=== PATIENT | female | born 1995 ===

== ENCOUNTER 2016-11-19 13:18 | Inpatient (IN) ==
[2016-11-19] MEDS ORDERED: MEPERIDINE 50 MG/1 ML VIAL IV PRN (13:49)
[2016-11-19] MEDS ORDERED: ONDANSETRON 4 MG/2 ML VIAL IV PRN ×2 (13:49→16:14)
[2016-11-19] MEDS ORDERED: BUTORPHANOL 2 MG/ML VIAL IV PRN (13:49)
[2016-11-19] MEDS ORDERED: LACTATED RINGERS 1,000 ML IV SCH (14:00)
[2016-11-19] MEDS ORDERED: OXYTOCIN/LR 20 UNIT/1,000 ML BAG IV SCH (14:00)
[2016-11-19 14:01] LABS: Basophils % 0.2 % (0.0-0.8); Eosinophils # 0.1 10*3/uL (0.0-0.87); Eosinophils % 0.7 % (0.00-10.9); Hematocrit 36.8 VOL% (35.7-47.0); Hemoglobin 12.5 GM/DL (12.0-16.0); Immature Granulocytes % 0.6 %; Immature Granulocytes Absolute 0.06 #; Lymphocytes # 1.7 10*3/uL (1.4-4.0); Lymphocytes % 17.5 % (21.3-54.2); Mean Corpuscular Hemoglobin 30 PG (27-34); Mean Platelet Volume 10.4 FL (9.6-12.0); Monocytes # 0.7 10*3/uL (0.11-0.8); Monocytes % 6.8 % (1.7-12.7); Neutrophils # 7.2 10*3/uL (1.4-7.4); Neutrophils % 74.2 % (38.7-73.9); Platelet Count 270 T/CUMM (130-400); Red Blood Count 4.18 MC/CUMM (3.8-5.5); White Blood Count 9.7 T/CUMM (4-12)
[2016-11-19] MEDS ORDERED: CLINDAMYCIN INJ 900 MG in PREMIX 1 EACH IV SCH (14:30)
[2016-11-19 14:34] LABS: Alanine Aminotransferase 11 U/L (13-56); Albumin 2.7 G/DL (3.4-5.0); Alkaline Phosphatase 162 U/L (45-117); Aspartate Amino Transferase 13 U/L (0-37); Bilirubin,Total < 0.39 MG/DL (0.2-1.0); Blood Urea Nitrogen 6 MG/DL (7-18); Glucose 105 MG/DL (74-106); Osmolality,Calculated 276.4 MOS/KG (273-304); Potassium 3.7 MMOL/L (3.5-5.1); Sodium 140 MMOL/L (136-145); Total Protein 6.4 G/DL (6.4-8.3)
--- NOTE | 2016-11-19 15:03 | OB/GYN History & Physical ---
History of Present Illness Chief complaint: Active labor, 5 cm, 80%, -1 station History of present illness: Ms. Rodriguez is a 21 year old female 4 para 2 EDC is 12/06/2016 and 37 weeks and 4 days, patient was examined at [facility] was found to be 4-5 cm dilated. 80% -2 station. Patient denies any leaking of fluid, vaginal bleeding, but does admit to irregular uterine contractions been persistent for the last 2-3 days. care has been to the [facility] without any major problems. Home Medications Medication Instructions Recorded Confirmed Type Vit No.124/Iron/Folic 1 each PO DAILY 11/19/16 11/19/16 History [ Vitamin Tablet] Allergies Allergy/AdvReac Type Severity Reaction Status Date / Time penicillin G Allergy Intermediate RASH Verified 07/13/15 10:25 Latex, Natural Rubber Allergy Verified 11/19/16 13:48 Medical,Surgical,& Family Hx - Surgical History Reproductive Surgeries: Patient denies;: Section - Family History Family History: Reports;: Family Diabetes (MOM) Denies;: Family Anesthesia Reaction, Family Cancer, Family Heart Disease, Family Hypertension, Family Psychiatric Problems, Family Stroke - Social History Smoking Status: Never smoker Frequency of Alcohol Use: None Type of Drug Use: None Exam CAD DRAFTSMAN - Constitutional General appearance: mild distress - Antepartum / Post Antepartum Exam Cervix - Dilatation: 4-5 cm dilated, 80%, -2 station - Head Head exam: Present: normal inspection - Eye Eye exam: Present: EOMI Pupils: Present: ELÍAS - ENT ENT exam: Present: normal exam - Neck Neck exam: Present: normal inspection - Respiratory Respiratory exam: Present: clear to auscultation bilaterally - Breast Breasts: as per HPI Menstruation: as per HPI - Cardiovascular Cardiovascular exam: Present: regular rate and rhythm - GI/Abdominal GI/Abdominal exam: Present: normal bowel sounds - Extremities Exam Extremities exam: Present: normal inspection - Back Exam Back exam: Present: normal inspection - Neurological Exam Neurological exam: Present: alert, oriented X3 - Psychiatric Psychiatric exam: Present: normal affect - Skin Skin exam: Present: normal color Assessment and Plan (1) Active labor Status: Acute Assessment and plan: Anticipate , have offered a epidural anesthetic patient however refuses. Fetus is very active, pelvic exam on admission to [facility] approximately 5 cm 80% and -2 station. Current Visit: Yes Results - Labs CBC & BMP: 11/19/16 13:57 11/19/16 13:57
[2016-11-19] MEDS ORDERED: LIDOCAINE 1% 50 ML VIAL ONE (15:32)
[2016-11-19] MEDS ORDERED: miSOPROStol 200 MCG TABLET ONE (15:32)
--- NOTE | 2016-11-19 16:12 | Event Note ---
Delivery note Stage I of labor Artificial rupture membranes clear fluid at 5 cm IUPC, scalp electrode placed inside IV Cleocin IV Pitocin No analgesic Stage II Vaginal delivery Live female 4:03 PM Apgars 9 at 1 minute 9 at 5 minutes Cord blood and cord gas Stage III Spontaneous liver the placenta Blood loss less than 300 cc 3 cord vessels noted Placenta delivered without any complication Mother stable A left labial laceration that did not need to be repaired.
[2016-11-19] MEDS ORDERED: IBUPROFEN 800 MG TABLET PO PRN (16:14)
[2016-11-19] MEDS ORDERED: WITCH HAZEL PADS 100/JAR TOP PRN (16:14)
[2016-11-19] MEDS ORDERED: BENZOCAINE 20%/MENTHOL 0.5% SPRAY 56 GM CAN TOP PRN (16:14)
[2016-11-19] MEDS ORDERED: MEASLES/MUMPS/RUBELLA VACCINE 0.5 ML VIAL SUBCUT ONE (16:14)
[2016-11-19] MEDS ORDERED: ACETAMINOPHEN 325 MG TABLET PO PRN (16:14)
[2016-11-19] MEDS ORDERED: RHO(D) IMMUNE GLOBULIN 300 MCG SYRINGE IM ONE (16:14)
[2016-11-19] MEDS ORDERED: BISACODYL 10 MG SUPP RECTAL PRN (16:14)
[2016-11-19] MEDS ORDERED: oxyCODONE/ACETAMINOPHEN 5-325 MG TABLET PO PRN ×2 (16:14)
[2016-11-19] MEDS ORDERED: OXYTOCIN/LR 20 UNIT/1,000 ML BAG IV ONE (16:14)
[2016-11-19] MEDS ORDERED: HYDROCORTISONE 2.5% RECTAL CREAM 30 GM TUBE TOP PRN (16:14)
[2016-11-19] MEDS ORDERED: DIPH/TET/ACEL PERT BOOSTER VACCINE 0.5 ML VIAL IM ONE (16:14)
[2016-11-19] MEDS ORDERED: LANOLIN 50% CREAM 0.3 OZ TUBE TOP PRN (16:14)
[2016-11-19 16:41] LABS: Cord Venous Blood HCO3 23.4 MMOL/L; Cord Venous Blood PCO2 38.6 MMHG; Cord Venous Blood PO2 25.6 MMHG
[2016-11-19] MEDS: DOCUSATE SODIUM 100 MG CAPSULE PO SCH (21:49)
[2016-11-20 05:23] LABS: Basophils % 0.2 % (0.0-0.8); Eosinophils # 0.1 10*3/uL (0.0-0.87); Eosinophils % 0.7 % (0.00-10.9); Hematocrit 35.8 VOL% (35.7-47.0); Immature Granulocytes % 0.6 %; Immature Granulocytes Absolute 0.07 #; Lymphocytes # 3.1 10*3/uL (1.4-4.0); Lymphocytes % 25.4 % (21.3-54.2); Mean Corpuscular HGB Conc 33.5 GM/DL (32-36); Mean Corpuscular Hemoglobin 30 PG (27-34); Mean Corpuscular Volume 89.1 FL (87-102); Mean Platelet Volume 10.7 FL (9.6-12.0); Monocytes # 0.9 10*3/uL (0.11-0.8); Monocytes % 7.5 % (1.7-12.7); Neutrophils # 8.1 10*3/uL (1.4-7.4); Neutrophils % 65.6 % (38.7-73.9); Platelet Count 251 T/CUMM (130-400); Red Blood Count 4.02 MC/CUMM (3.8-5.5); Red Cell Distribution Width 12.7 % (9.3-17.3); White Blood Count 12.3 T/CUMM (4-12)
[2016-11-20] MEDS: DOCUSATE SODIUM 100 MG CAPSULE PO SCH ×2 (09:00→21:42)
[2016-11-21 08:30] VITALS: BP 117/75
[2016-11-21] MEDS: DOCUSATE SODIUM 100 MG CAPSULE PO SCH (08:32)
--- NOTE | 2016-11-21 10:14 | Discharge Summary ---
Hospital Course - Hospital Course Hospital Course: Multiparous patient, admitted in active labor approximately 5-6 cm dilated. Patient had artificial rupture membranes IUPC scalp electrode was allowed to progress in labor. She delivered a viable without any major complaints. She had a 2 day postoperative visit in the hospital without any complications. She will be discharged and follow-up our office approximately 6 weeks. Diagnosis - Discharge Diagnosis (1) Active labor Status: Acute Specialty Discharge - Follow Up or Referrals Follow up with: Tyler Monaco MD [Physician] - Discharge Plan - Discharge Data Condition at Discharge: Stable Discharge Diet: advance to your usual diet Activity: resume usual activities as tolerated Hygiene: no restrictions Weight Bearing at Discharge: full weight bearing Driving: no restrictions Contact your physician if you experience:: fever over 101, Bleeding - Discharge Medications New oxyCODONE/ACETAMINOPHEN 5-325 [Percocet 5-325] 1 tablet PO Q6H PRN #20 tablet PRN Reason: Pain Severe (8-10) Ibuprofen Tab [Motrin Tab] 800 mg PO Q6H PRN #30 tablet PRN Reason: Pain Moderate (4-7) No Action Vit No.124/Iron/Folic [ Vitamin Tablet] 1 each PO DAILY - Follow Up or Referral Follow Up: Tyler Monaco MD [Physician] - - Forms/Instructions Instructions: Depression (GEN), Perineal Care (DC), Bleeding (DC), Sitz Bath (DC) Exam - Constitutional Vitals: Period Temp Pulse Resp BP Sys/Montano Pulse Ox Last 24 Hr 97.0 F-98.8 F 75-86 18-76 106-117/58-75 98-99 DS: Provider Date of admission: 11/19/16 13:19 Primary care physician: Toya Osorio MD Attending physician on admission: Tyler Monaco MD Consults: 11/19/16 16:14 Consult to Sample Maker [CONS] Routine Consult Sample Maker: Breast Feeding Discharging clinician: Tyler Monaco MD
== END 2016-11-21 15:00 | disposition home or self-care (01) | DRG 775 ==
LOC: N.LDOUT 13:18 → N.LD 13:19 → N.OB 17:44
PROVIDERS: ADMIT Obstetrics & Gynecology; ATTEND Obstetrics & Gynecology

== ENCOUNTER 2018-03-15 18:46 | Inpatient (IN) ==
[2018-03-15] MEDS ORDERED: SODIUM CHLORIDE 0.9% 1,000 ML IV STA (19:23)
[2018-03-15] MEDS ORDERED: ONDANSETRON 4 MG/2 ML VIAL IV STA (19:23)
[2018-03-15 19:56] LABS: PT Patient Result 10.4 SECS
[2018-03-15 20:05] LABS: Basophils % 0.4 % (0.0-0.8); Eosinophils # 0.1 10*3/uL (0.0-0.87); Eosinophils % 1.4 % (0.00-10.9); Immature Granulocytes % 0.4 %; Immature Granulocytes Absolute 0.03 #; Lymphocytes # 2.9 10*3/uL (1.4-4.0); Lymphocytes % 34.8 % (21.3-54.2); Mean Corpuscular HGB Conc 32.6 GM/DL (32-36); Mean Corpuscular Hemoglobin 31 PG (27-34); Mean Corpuscular Volume 95.5 FL (87-102); Monocytes # 0.5 10*3/uL (0.11-0.8); Monocytes % 5.9 % (1.7-12.7); Neutrophils # 4.7 10*3/uL (1.4-7.4); Neutrophils % 57.1 % (38.7-73.9); Platelet Count 211 T/CUMM (130-400); Red Blood Count 1.99 MC/CUMM (3.8-5.5); Red Cell Distribution Width 12.7 % (9.3-17.3); White Blood Count 8.3 T/CUMM (4-12)
[2018-03-15 20:12] LABS: Alanine Aminotransferase 11 U/L (13-56); Albumin 2.7 G/DL (3.4-5.0); Alkaline Phosphatase 53 U/L (45-117); Aspartate Amino Transferase 10 U/L (0-37); Bilirubin,Total < 0.39 MG/DL (0.2-1.0); Blood Urea Nitrogen 7 MG/DL (7-18); Glucose 80 MG/DL (74-106); Osmolality,Calculated 279.1 MOS/KG (273-304); Potassium 3.6 MMOL/L (3.5-5.1); Sodium 142 MMOL/L (136-145); Total Protein 5.7 G/DL (6.4-8.3)
[2018-03-15 20:25] LABS: Hemoglobin 6.2 GM/DL (12.0-16.0)
[2018-03-15 21:03] LABS: Apearance,Urine Slightly Hazy (Clear); Bilirubin,Urine Negative (Negative); Blood, Urine Large mg/dL (Negative); Glucose,Urine (UA) Negative (Negative); Ketones,Urine 20 mg/dL (Negative); Mucus,Urine Many /LPF (Occasional); Nitrite,Urine Negative (Negative); Protein,Urine 30 MG/DL; RBC,Urine 25 /HPF (0-4); Squamous Epithelial Cell,Urine Occasional /HPF (0-10); Urine Color Yellow (Yellow); Urine Specific Gravity 1.025 (1.001-1.035); WBC,Urine 19 /HPF (0-6)
[2018-03-15] MEDS ORDERED: LEVOFLOXACIN INJ 750 MG in PREMIX 1 EACH IV STA (23:47)
[2018-03-16] MEDS ORDERED: MAGNESIUM HYDROXIDE SUSP 30 ML UDCUP PO PRN (00:52)
[2018-03-16] MEDS ORDERED: IBUPROFEN 800 MG TABLET PO PRN (00:52)
[2018-03-16] MEDS ORDERED: SODIUM CHLORIDE 0.9% 1,000 ML IV PRN ×3 (00:52→09:59)
[2018-03-16] MEDS ORDERED: ACETAMINOPHEN 325 MG TABLET PO PRN (00:52)
[2018-03-16] MEDS ORDERED: HYDROmorphone 2 MG TABLET PO PRN (00:52)
[2018-03-16] MEDS ORDERED: ONDANSETRON 4 MG/2 ML VIAL IV PRN (00:52)
[2018-03-16] MEDS ORDERED: LACTATED RINGERS 1,000 ML IV SCH (00:52)
[2018-03-16] MEDS ORDERED: BISACODYL 10 MG SUPP RECTAL PRN (00:52)
[2018-03-16 01:31] LABS: Basophils % 0.3 % (0.0-0.8); Eosinophils # 0.1 10*3/uL (0.0-0.87); Immature Granulocytes % 0.6 %; Immature Granulocytes Absolute 0.04 #; Lymphocytes # 2.9 10*3/uL (1.4-4.0); Lymphocytes % 42.7 % (21.3-54.2); Mean Corpuscular HGB Conc 32.2 GM/DL (32-36); Mean Corpuscular Hemoglobin 31 PG (27-34); Mean Corpuscular Volume 95.5 FL (87-102); Monocytes # 0.4 10*3/uL (0.11-0.8); Monocytes % 5.1 % (1.7-12.7); Neutrophils # 3.4 10*3/uL (1.4-7.4); Neutrophils % 49.3 % (38.7-73.9); Platelet Count 162 T/CUMM (130-400); Red Blood Count 1.79 MC/CUMM (3.8-5.5); Red Cell Distribution Width 12.6 % (9.3-17.3); White Blood Count 6.8 T/CUMM (4-12)
[2018-03-16 01:34] LABS: Hemoglobin 5.5 GM/DL (12.0-16.0)
[2018-03-16 01:35] LABS: Hematocrit 17.1 VOL% (35.7-47.0)
[2018-03-16 01:43] LABS: PT Patient Result 10.6 SECS
[2018-03-16 01:51] LABS: Alanine Aminotransferase 11 U/L (13-56); Albumin 2.3 G/DL (3.4-5.0); Alkaline Phosphatase 48 U/L (45-117); Aspartate Amino Transferase 7 U/L (0-37); Bilirubin,Total < 0.39 MG/DL (0.2-1.0); Blood Urea Nitrogen 5 MG/DL (7-18); Glucose 106 MG/DL (74-106); Potassium 3.3 MMOL/L (3.5-5.1); Sodium 143 MMOL/L (136-145); Total Protein 5.1 G/DL (6.4-8.3)
[2018-03-16] MEDS ORDERED: INFLUENZA VIRUS VACCINE 0.5 ML SYRINGE IM ONE (01:51)
[2018-03-16] MEDS: DOCUSATE SODIUM 100 MG CAPSULE PO SCH ×2 (08:51→23:09)
[2018-03-16] MEDS: FERROUS SULFATE 325 MG TABLET PO SCH ×2 (08:52→23:09)
[2018-03-16 08:56] LABS: Basophils % 0.3 % (0.0-0.8); Eosinophils # 0.1 10*3/uL (0.0-0.87); Eosinophils % 1.5 % (0.00-10.9); Immature Granulocytes % 0.7 %; Immature Granulocytes Absolute 0.04 #; Lymphocytes # 2.1 10*3/uL (1.4-4.0); Lymphocytes % 36.5 % (21.3-54.2); Mean Corpuscular HGB Conc 33.6 GM/DL (32-36); Mean Corpuscular Hemoglobin 31 PG (27-34); Mean Corpuscular Volume 92.3 FL (87-102); Mean Platelet Volume 10.6 FL (9.6-12.0); Monocytes # 0.4 10*3/uL (0.11-0.8); Monocytes % 6.1 % (1.7-12.7); Neutrophils # 3.2 10*3/uL (1.4-7.4); Neutrophils % 54.9 % (38.7-73.9); Platelet Count 172 T/CUMM (130-400); Red Cell Distribution Width 13.2 % (9.3-17.3); White Blood Count 5.9 T/CUMM (4-12)
[2018-03-16 09:07] LABS: Hemoglobin 8.4 GM/DL (12.0-16.0); Red Blood Count 2.71 MC/CUMM (3.8-5.5)
[2018-03-16 17:34] LABS: Hematocrit 30.5 VOL% (35.7-47.0)
[2018-03-16] MEDS ORDERED: LEVOFLOXACIN INJ 750 MG in PREMIX 1 EACH IV SCH (23:30)
[2018-03-17] MEDS: DOCUSATE SODIUM 100 MG CAPSULE PO SCH (08:35)
[2018-03-17] MEDS: FERROUS SULFATE 325 MG TABLET PO SCH (08:35)
[2018-03-17 12:02] VITALS: BP 101/59
== END 2018-03-17 16:40 | disposition home or self-care (01) | DRG 812 ==
LOC: EDUNIT# → EDBD → N.ED 18:46 → N.EDINP 23:47 → N.OB 03-16 00:48
PROVIDERS: ADMIT Obstetrics & Gynecology; ATTEND Obstetrics & Gynecology

== ENCOUNTER 2019-04-24 04:49 | Inpatient (IN) ==
[2019-04-24] MEDS ORDERED: ONDANSETRON 4 MG/2 ML VIAL IV PRN (05:08)
[2019-04-24] MEDS ORDERED: MEPERIDINE 50 MG/1 ML VIAL IV PRN (05:08)
[2019-04-24] MEDS ORDERED: CLINDAMYCIN INJ 900 MG in PREMIX 1 EACH IV SCH (05:30)
[2019-04-24] MEDS ORDERED: LACTATED RINGERS 1,000 ML IV SCH (05:30)
[2019-04-24 05:34] LABS: Basophils % 0.1 % (0.0-0.8); Eosinophils # 0.1 10*3/uL (0.0-0.87); Hematocrit 34.7 VOL% (35.7-47.0); Hemoglobin 11.2 GM/DL (12.0-16.0); Immature Granulocytes % 0.5 %; Immature Granulocytes Absolute 0.07 #; Lymphocytes # 1.8 10*3/uL (1.4-4.0); Lymphocytes % 13.6 % (21.3-54.2); Mean Corpuscular HGB Conc 32.3 GM/DL (32-36); Mean Corpuscular Volume 91.3 FL (87-102); Mean Platelet Volume 10.6 FL (9.6-12.0); Monocytes % 8.2 % (1.7-12.7); Neutrophils % 76.6 % (38.7-73.9); Platelet Count 254 T/CUMM (130-400); White Blood Count 13.4 T/CUMM (4-12)
[2019-04-24 05:47] LABS: Apearance,Urine CLEAR (Clear); Bacteria,Urine Occasional /HPF (Few); Bilirubin,Urine Negative (Negative); Blood, Urine Small mg/dL (Negative); Glucose,Urine (UA) 50 mg/dL (Negative); Ketones,Urine Negative (Negative); Mucus,Urine Occasional /LPF (Occasional); Nitrite,Urine Negative (Negative); Protein,Urine Negative; RBC,Urine 2 /HPF (0-4); Squamous Epithelial Cell,Urine Occasional /HPF (0-10); Urine Color Yellow (Yellow); Urine Urobilinogen < 2.0 EU/DL (0.2-1.0); WBC,Urine 2 /HPF (0-6)
[2019-04-24 06:07] LABS: Alanine Aminotransferase 12 U/L (13-56); Albumin 2.4 G/DL (3.4-5.0); Alkaline Phosphatase 138 U/L (45-117); Aspartate Amino Transferase 11 U/L (0-37); Bilirubin,Total < 0.39 MG/DL (0.2-1.0); Blood Urea Nitrogen 4 MG/DL (7-18); Calcium 7.8 MG/DL (8.5-10.1); Estimated Glom Filtration Rate 146 ML/MIN; Glucose 102 MG/DL (74-106); Osmolality,Calculated 273.5 MOS/KG (273-304); Total Protein 6.4 G/DL (6.4-8.3)
[2019-04-24] MEDS ORDERED: TRANEXAMIC ACID 1,000 MG/10 ML VIAL ONE (07:47)
[2019-04-24] MEDS ORDERED: miSOPROStoL 200 MCG TABLET ONE (07:47)
[2019-04-24] MEDS ORDERED: LIDOCAINE 1% 50 ML VIAL ONE (07:48)
[2019-04-24] MEDS ORDERED: CARBOPROST TROMETHAMINE 250 MCG/ML AMP IM ONE (07:48)
[2019-04-24] MEDS ORDERED: METHYLERGONOVINE 0.2 MG/1 ML AMP ONE (07:48)
[2019-04-24] MEDS ORDERED: OXYTOCIN/LR 20 UNIT/1,000 ML BAG IV ONE ×2 (07:48→10:16)
[2019-04-24] MEDS: OXYTOCIN/LR 30 UNIT/1,000 ML BAG IV ONE ×2 (08:20→09:49)
[2019-04-24] MEDS ORDERED: OXYTOCIN/LR 20 UNIT/1,000 ML BAG IV SCH (10:00)
[2019-04-24] MEDS ORDERED: IBUPROFEN 800 MG TABLET PO PRN (11:46)
[2019-04-24] MEDS ORDERED: BISACODYL 10 MG SUPP RECTAL PRN (11:46)
[2019-04-24] MEDS ORDERED: BENZOCAINE 20%/MENTHOL 0.5% SPRAY 56 GM CAN TOP PRN (11:46)
[2019-04-24] MEDS ORDERED: oxyCODONE/ACETAMINOPHEN 5-325 MG TABLET PO PRN (11:46)
[2019-04-24] MEDS ORDERED: HYDROCORTISONE 2.5% RECTAL CREAM 30 GM TUBE TOP PRN (11:46)
[2019-04-24] MEDS ORDERED: ACETAMINOPHEN 325 MG TABLET PO PRN (11:46)
[2019-04-24] MEDS ORDERED: WITCH HAZEL PADS 100/JAR TOP PRN (11:46)
[2019-04-24] MEDS: DOCUSATE SODIUM 100 MG CAPSULE PO SCH (21:07)
[2019-04-24] MEDS: oxyCODONE/ACETAMINOPHEN 5-325 MG TABLET PO PRN (21:13)
[2019-04-25 06:15] LABS: Basophils % 0.2 % (0.0-0.8); Eosinophils # 0.2 10*3/uL (0.0-0.87); Eosinophils % 1.5 % (0.00-10.9); Hematocrit 32.7 VOL% (35.7-47.0); Hemoglobin 10.3 GM/DL (12.0-16.0); Immature Granulocytes % 0.6 %; Immature Granulocytes Absolute 0.07 #; Lymphocytes # 2.6 10*3/uL (1.4-4.0); Mean Corpuscular HGB Conc 31.5 GM/DL (32-36); Mean Corpuscular Volume 92.4 FL (87-102); Mean Platelet Volume 10.3 FL (9.6-12.0); Monocytes % 7.6 % (1.7-12.7); Neutrophils % 67.1 % (38.7-73.9); Platelet Count 233 T/CUMM (130-400); Red Blood Count 3.54 MC/CUMM (3.8-5.5); Red Cell Distribution Width 12.9 % (9.3-17.3); White Blood Count 11.4 T/CUMM (4-12)
[2019-04-25] MEDS: oxyCODONE/ACETAMINOPHEN 5-325 MG TABLET PO PRN (08:18)
[2019-04-25] MEDS: DOCUSATE SODIUM 100 MG CAPSULE PO SCH ×2 (08:18→21:41)
[2019-04-26 08:05] VITALS: BP 97/45
[2019-04-26] MEDS ORDERED: DIPH/TET/ACEL PERT BOOSTER VACCINE 0.5 ML VIAL IM ONE (08:35)
[2019-04-26] MEDS: DOCUSATE SODIUM 100 MG CAPSULE PO SCH (08:53)
== END 2019-04-26 15:40 | disposition home or self-care (01) | DRG 560 ==
LOC: N.LDOUT 04:49 → N.LD 04:50 → N.OB 04-25 09:27
PROVIDERS: ADMIT Obstetrics & Gynecology; ATTEND Obstetrics & Gynecology